=== PATIENT | female | born 1955 | race Caucasian/White ===

== ENCOUNTER 2017-11-14 19:28 | Emergency (ER) | payer MEDICARE, OTHER | END 2017-11-14 19:50 | disposition home or self-care (01) | LOC: BURERS 19:28 | DX: S60.042A Contusion of left ring finger without damage to nail, initial encounter (principal); E11.9 Type 2 diabetes mellitus without complications; I10 Essential (primary) hypertension; Z86.73 Personal history of transient ischemic attack (TIA), and cerebral infarction without residual deficits; G47.30 Sleep apnea, unspecified; Z79.899 Other long term (current) drug therapy; X58.XXXA Exposure to other specified factors, initial encounter | CPT/HCPCS: 99283 ==

== ENCOUNTER 2020-01-27 10:42 | Outpatient (CLI) | payer OTHER ==
--- NOTE | 2020-01-27 15:22 | RAD ---
CERVICAL SPINE TWO VIEWS: 01/27/20 No prior studies were available for comparison. The history mentioned cervicothoracic fractures. AP and lateral plain radiographs are presented. There is loss of the normal cervical lordosis. No obv ious fracture was visualized on these radiographs. There is a mild anterior subluxation of C2 on C3 b y about 2 mm. Disc space narrowing is present at C5-C6 along with prominent anterior osteophytes and probable some prominent facet arthritis around this area too. The spinous processes all appear intact . The C1 to dens distance is not widened and the soft tissues are normal in thickness. IMPRESSION: 1. Straightening of the spine which could be due to spasm. Moderately severe degenerative change s, worst at C5-C6. 2. No fracture visible on these plain radiographs, but correlation with cross-sectional studies would be useful. POS: HOME
--- NOTE | 2020-01-27 15:32 | RAD ---
THORACIC SPINE: 01/27/20 AP and lateral views are provided. Moderate degenerative changes are seen at most levels consisting o f osteophytes and some ossification of the anterior longitudinal ligament. No gross fracture was iden tified on any of these films through cross-section would likely be more accurate. A minimal curved of the thoracic spine convexed right was noted. IMPRESSION: Moderate degenerative changes. Fractures could not be definitely seen on these plain radiographs. POS: HOME
== END 2020-01-27 10:43 | disposition home or self-care (01) ==
LOC: BURRAD 10:42
PROVIDERS: ATTEND Neurological Surgery
DX: S22.009A Unspecified fracture of unspecified thoracic vertebra, initial encounter for closed fracture (principal); S12.9XXA Fracture of neck, unspecified, initial encounter; M47.812 Spondylosis without myelopathy or radiculopathy, cervical region; M47.814 Spondylosis without myelopathy or radiculopathy, thoracic region
CPT/HCPCS: 72040; 72070